=== PATIENT | female | born 1930 | race Caucasian/White ===

== ENCOUNTER 2019-03-09 08:07 | Emergency (ER) | payer MEDICARE ==
[~2019-03-09] VITALS: Ht 152.4 cm; Wt 74.8 kg
[2019-03-09] MEDS ORDERED: ONDANSETRON PF 4 MG/2 ML VIAL. IV ONE (08:15)
[2019-03-09] MEDS ORDERED: ONDANSETRON PF 4 MG/2 ML VIAL. ONE (08:19)
[2019-03-09] MEDS ORDERED: IV NORMAL SALINE 1000ML BAG 1,000 ML IV ONE (08:30)
[2019-03-09 08:57] LABS: CREATININE 0.7 mg/dL (0.6-1.0); GFR 78.8; POTASSIUM 3.3 mmol/L (3.5-5.1)
[2019-03-09 09:03] LABS: ALBUMIN 3.7 g/dL (3.4-5.0); ALBUMIN/GLOBULIN RATIO 0.9 (1.0-1.7); TOTAL BILIRUBIN 0.6 mg/dL (0.2-1.0); TOTAL PROTEIN 7.6 g/dL (6.4-8.2)
--- NOTE | 2019-03-09 09:11 | RAD ---
PQRS Compliance statement: One or more of the following individualized dose reduction techniques were utilized for this examination: 1. Automated exposure control. 2. Adjustment of the mA and/or kV according to patient size. 3. Use of iterative reconstruction technique. Indication:Lower abdominal pain for 2 days. TECHNIQUE: CT abdomen and pelvis without IV contrast with multiplanar reformats. COMPARISON: 03/26/2007 FINDINGS: Limited evaluation of solid abdominal and pelvic organs due to lack of IV contrast. Heart is normal in size. No pericardial or pleural effusion. Motion artifact is seen in the lung bases limiting optimal evaluation. Although visualized lungs are grossly clear. Noncontrast appearance of the liver, spleen, pancreas, adrenals and kidneys within normal limits. Status post cholecystectomy. Simple appearing cyst in the inferior pole of the left kidney measuring 3.6 x 2.8 cm. Moderate atherosclerotic plaque in the abdominal aorta. No enlarged retroperitoneal or pelvic adenopathy. No free pelvic fluid or ascites. No bowel obstruction. Status post hysterectomy. Urinary bladder demonstrates no radiopaque stones. No pneumoperitoneum. No suspicious bony lesion. IMPRESSION: Limited evaluation of solid abdominal and pelvic organs due to lack of IV contrast. No acute findings. Electronically signed by: Guanaco Mendoza DO (03/09/2019 9:08 AM) [facility]
[2019-03-09 09:22] LABS: BASO # 0.1 x10^3/uL (0.0-0.2); BASO % 1 % (0-3); EOS # 0.1 x10^3/uL (0.0-0.7); EOS % 1 % (0-3); HEMATOCRIT 41.4 % (36.0-47.0); HEMOGLOBIN 14.1 g/dL (12.0-15.5); LYMPH % 21 % (24-48); MEAN CORPUSCULAR HEMOGLOBIN 31 pg (25-35); MEAN CORPUSCULAR HGB CONC 34 g/dL (31-37); MEAN CORPUSCULAR VOLUME 91 fL (79-100); MONO # 0.7 x10^3/uL (0.0-1.1); MONO % 7 % (0-9); NEUT # 6.8 x10^3/uL (1.8-7.7); NEUT % 71 % (31-73); PLATELET COUNT 189 x10^3/uL (140-400); RED BLOOD COUNT 4.53 x10^6/uL (3.50-5.40); RED CELL DISTRIBUTION WIDTH 13.3 % (11.5-14.5); WHITE BLOOD COUNT 9.7 x10^3/uL (4.0-11.0)
[2019-03-09 10:06] LABS: BILIRUBIN,URINE NEGATIVE (NEG); CLARITY,URINE CLOUDY; COLOR,URINE YELLOW; NITRITE,URINE NEGATIVE (NEG); PH,URINE 7.5; PROTEIN,URINE NEGATIVE (NEG-TRACE); UROBILINOGEN,URINE 0.2 mg/dL (0.2 mg/dL)
--- NOTE | 2019-03-09 10:13 | PHYS DOC ---
Past Medical History Past Surgical History: Cholecystectomy Alcohol Use: None Drug Use: None Adult General Chief Complaint Chief Complaint: NAUSEA/VOMITING/DIARRHA HPI HPI Patient is a 88 year old female who brought in by EMS with complaining of nausea and vomiting and abdominal pain. Patient complaining of intermittent episodes of lower abdominal cramping pain and 3 episodes of vomiting since last night. Patient states she had multiple episodes of nonbloody diarrhea with generalized weakness. Patient did not have sick contact, fever and chills, urinary symptoms, chest pain, shortness of breath. Review of Systems Review of Systems Constitutional: Denies fever or chills [] Eyes: Denies change in visual acuity, redness, or eye pain [] HENT: Denies nasal congestion or sore throat [] Respiratory: Denies cough or shortness of breath [] Cardiovascular: No additional information not addressed in HPI [] GI: Reports abdominal pain, nausea, vomiting, diarrhea [] : Denies dysuria or hematuria [] Musculoskeletal: Denies back pain or joint pain [] Integument: Denies rash or skin lesions [] Neurologic: Denies headache, focal weakness or sensory changes [] Endocrine: Denies polyuria or polydipsia [] All other systems were reviewed and found to be within normal limits, except as documented in this note. Current Medications Current Medications Current Medications Medications (Trade) Dose Ordered Sig/Roxy Start Time Stop Time Status Last Admin Dose Admin Ondansetron HCl (Zofran) 4 mg STK-MED ONCE 03/09/19 08:19 03/09/19 08:20 DC Sodium Chloride 1,000 ml @ 125 mls/hr 1X ONCE 03/09/19 08:30 03/09/19 11:06 DC 03/09/19 08:20 125 MLS/HR Allergies Allergies Allergies Coded Allergies Type Severity Reaction Last Updated Verified Sulfa (Sulfonamide Antibiotics) Allergy Unknown 03/09/19 Yes amoxicillin Allergy Unknown 03/09/19 Yes Physical Exam Physical Exam Constitutional: Well developed, well nourished, moderate distress, non-toxic appearance, actively vomiting at arrival to ER. [] HENT: Normocephalic, atraumatic, oropharynx dry. Eyes: PERRLA, EOMI, conjunctiva normal, no discharge. [] Neck: Normal range of motion, no tenderness, supple, no stridor. [] Cardiovascular:Heart rate regular rhythm, no murmur [] Lungs & Thorax: Bilateral breath sounds clear to auscultation [] Abdomen: Bowel sounds normal, soft, no tenderness, no masses, no pulsatile masses. [] Skin: Warm, dry, no erythema, no rash. [] Back: No tenderness, no CVA tenderness. [] Extremities: No tenderness, no cyanosis, no clubbing, ROM intact, no edema. [] Neurologic: Alert and oriented X 3, normal motor function, normal sensory function, no focal deficits noted. [] Psychologic: Affect normal, judgement normal, mood normal. [] Current Patient Data Vital Signs Vital Signs Date Time Temp Pulse Resp B/P (MAP) Pulse Ox O2 Delivery O2 Flow Rate FiO2 03/09/19 10:30 75 16 132/70 (90) 03/09/19 08:59 97 Room Air 03/09/19 08:15 97.1 97.1 Lab Values Laboratory Tests Test 03/09/19 08:25 03/09/19 09:08 03/09/19 09:55 Sodium Level 136 mmol/L (136-145) Potassium Level 3.3 mmol/L (3.5-5.1) L Chloride Level 99 mmol/L (98-107) Carbon Dioxide Level 26 mmol/L (21-32) Anion Gap 11 (6-14) Blood Urea Nitrogen 12 mg/dL (7-20) Creatinine 0.7 mg/dL (0.6-1.0) Estimated GFR (Cockcroft-Gault) 78.8 BUN/Creatinine Ratio 17 (6-20) Glucose Level 143 mg/dL (70-99) H Lactic Acid Level 1.6 mmol/L (0.4-2.0) Calcium Level 9.0 mg/dL (8.5-10.1) Total Bilirubin 0.6 mg/dL (0.2-1.0) Aspartate Amino Transferase (AST) 27 U/L (15-37) Alanine Aminotransferase (ALT) 23 U/L (14-59) Alkaline Phosphatase 141 U/L (46-116) H Creatine Kinase 61 U/L (26-192) Troponin I Quantitative < 0.017 ng/mL (0.000-0.055) LZ-Eca-B-Type Natriuretic Peptide 629 pg/mL (0-449) H Total Protein 7.6 g/dL (6.4-8.2) Albumin 3.7 g/dL (3.4-5.0) Albumin/Globulin Ratio 0.9 (1.0-1.7) L Lipase 229 U/L (73-393) White Blood Count 9.7 x10^3/uL (4.0-11.0) Red Blood Count 4.53 x10^6/uL (3.50-5.40) Hemoglobin 14.1 g/dL (12.0-15.5) Hematocrit 41.4 % (36.0-47.0) Mean Corpuscular Volume 91 fL (79-100) Mean Corpuscular Hemoglobin 31 pg (25-35) Mean Corpuscular Hemoglobin Concent 34 g/dL (31-37) Red Cell Distribution Width 13.3 % (11.5-14.5) Platelet Count 189 x10^3/uL (140-400) Neutrophils (%) (Auto) 71 % (31-73) Lymphocytes (%) (Auto) 21 % (24-48) L Monocytes (%) (Auto) 7 % (0-9) Eosinophils (%) (Auto) 1 % (0-3) Basophils (%) (Auto) 1 % (0-3) Neutrophils # (Auto) 6.8 x10^3/uL (1.8-7.7) Lymphocytes # (Auto) 2.0 x10^3/uL (1.0-4.8) Monocytes # (Auto) 0.7 x10^3/uL (0.0-1.1) Eosinophils # (Auto) 0.1 x10^3/uL (0.0-0.7) Basophils # (Auto) 0.1 x10^3/uL (0.0-0.2) Urine Collection Type Unknown Urine Color Yellow Urine Clarity Cloudy Urine pH 7.5 Urine Specific [place] 1.010 Urine Protein Negative mg/dL (NEG-TRACE) Urine Glucose (UA) Negative mg/dL (NEG) Urine Ketones (Stick) Negative mg/dL (NEG) Urine Blood Negative (NEG) Urine Nitrite Negative (NEG) Urine Bilirubin Negative (NEG) Urine Urobilinogen Dipstick 0.2 mg/dL (0.2 mg/dL) Urine Leukocyte Esterase Negative (NEG) Urine RBC Occ /HPF (0-2) Urine WBC Occ /HPF (0-4) Urine Squamous Epithelial Cells Few /LPF Urine Amorphous Sediment Present /HPF Urine Bacteria Moderate /HPF (0-FEW) Laboratory Tests 03/09/19 09:08 Laboratory Tests 03/09/19 08:25 EKG EKG EKG interpreted by me. EKG at 0 822 showed normal sinus rhythm at rate of 70, normal NH and QT intervals, no acute ST and T-wave abnormalities. Radiology/Procedures Radiology/Procedures [][facility] [address] [place] [address] IMAGING REPORT Signed PATIENT: PJ BASS ACCOUNT: [id number] : 1930 LOCATION: ER AGE: 88 SEX: F EXAM STATUS: REG ER ORD. PHYSICIAN: AKUA SOLOMON MD REASON: lower abdominal pain x 2 days, PROCEDURE: CT ABDOMEN PELVIS WO CONTRAST PQRS Compliance statement: One or more of the following individualized dose reduction techniques were utilized for this examination: 1. Automated exposure control. 2. Adjustment of the mA and/or kV according to patient size. 3. Use of iterative reconstruction technique. Indication:Lower abdominal pain for 2 days. TECHNIQUE: CT abdomen and pelvis without IV contrast with multiplanar reformats. COMPARISON: 03/26/2007 FINDINGS: Limited evaluation of solid abdominal and pelvic organs due to lack of IV contrast. Heart is normal in size. No pericardial or pleural effusion. Motion artifact is seen in the lung bases limiting optimal evaluation. Although visualized lungs are grossly clear. Noncontrast appearance of the liver, spleen, pancreas, adrenals and kidneys within normal limits. Status post cholecystectomy. Simple appearing cyst in the inferior pole of the left kidney measuring 3.6 x 2.8 cm. Moderate atherosclerotic plaque in the abdominal aorta. No enlarged retroperitoneal or pelvic adenopathy. No free pelvic fluid or ascites. No bowel obstruction. Status post hysterectomy. Urinary bladder demonstrates no radiopaque stones. No pneumoperitoneum. No suspicious bony lesion. IMPRESSION: Limited evaluation of solid abdominal and pelvic organs due to lack of IV contrast. No acute findings. Electronically signed by: Guanaco Mendoza DO (03/09/2019 9:08 AM) [facility] DICTATED and SIGNED BY: GUANACO MENDOZA DO DATE: 03/09/19 0908 Course & Med Decision Making Course & Med Decision Making Pertinent Labs and Imaging studies reviewed. (See chart for details) Evaluation of patient in ER showed 88-year-old male patient with episodes of nausea and vomiting and diarrhea since yesterday. Patient had active vomiting at arrival to ER and treated with IV fluid and Zofran with improvement of her condition and tolerated oral intake. Patient had unremarkable CT abdomen and pelvis and labs. Plan discharge patient home to diagnose of acute gastroenteritis and instruction to take liquid diet today. Dragon Disclaimer Dragon Disclaimer This electronic medical record was generated, in whole or in part, using a voice recognition dictation system. Departure Departure Impression: Primary Impression: Acute gastroenteritis Additional Impression: Hypokalemia Disposition: HOME, SELF-CARE (at 11 00) Condition: IMPROVED Referrals: MARE SANCHEZ MD (PCP) Patient Instructions: Hypokalemia, Viral Gastroenteritis Additional Instructions: Drink plenty of liquids Follow-up with your primary care physician in 3-5 days Return to ER if not getting better Do not take solid food today Scripts Ondansetron Hcl (ZOFRAN) 4 Mg Tablet 1 TAB PO PRN Q6-8HRS for nausea, #12 TAB Prov: AKUA SOLOMON MD 03/09/19 Problem Qualifiers AKUA SOLOMON MD Mar 09, 2019 10:13
[2019-03-09 10:18] LABS: AMORPHOUS SEDIMENT,UR PRESENT /HPF; BACTERIA,URINE MODERATE /HPF (0-FEW); RBC,URINE OCC /HPF (0-2); SQUAMOUS EPITHELIAL CELL,UR FEW /LPF; WBC,URINE OCC /HPF (0-4)
[2019-03-09 10:30] VITALS: BP 132/70
[2019-03-09] MEDS ORDERED: ONDA4TAB7 PO (11:01)
--- NOTE | 2019-03-09 13:37 | EKG ---
[facility] [address] [place] [address] Test Date: 2019-03-09 Test Time: 08:23:11 Pat Name: PJ BASS Department: Room: Gender: F Hospital Sales Representative: : 1930 Requested By: AKUA SOLOMON Order Number: [id number] Reading MD: Measurements Intervals [place] Rate: 70 P: 90 NV: 176 QRS: 43 QRSD: 86 T: 63 QT: 434 QTc: 472 Interpretive Statements SINUS RHYTHM NO SPECIFIC ECG ABNORMALITIES RI6.01 No previous ECG available for comparison
--- NOTE | 2019-03-13 11:36 | VNOTE ---
CALL BACK NOTE CALL BACK Microbiology 03/09/19 Urine Culture - Final, Complete 03/09/19 Urine Culture Result 1 (ISAAC) - Final, Complete 03/09/19 Antimicrobic Susceptibility - Final, Complete Positive urine culture. Left voicemail for patient. KERRY CAMARILLO APRN Mar 13, 2019 11:36
== END 2019-03-09 11:05 | disposition home or self-care (01) ==
LOC: ER 08:07
DX: K52.9 Noninfective gastroenteritis and colitis, unspecified (principal); E87.6 Hypokalemia; Z90.49 Acquired absence of other specified parts of digestive tract; Z88.1 Allergy status to other antibiotic agents; Z88.2 Allergy status to sulfonamides
CPT/HCPCS: 36415; 74176; 80053; 81001; 82550; 83605; 83690; 83880; 84484; 85025; 87086; 93005; 96374; 99285; J2405; J7030; 87186